=== PATIENT | female | born 1990 | race Caucasian/White ===

== ENCOUNTER 2016-04-18 07:35 | Emergency (ER) | payer OTHER ==
[~2016-04-18] VITALS: Ht 165.1 cm; Wt 81.6 kg
[~2016-04-18 07:35] MED LIST: FLEXERIL10 MG PO; IBU800 MG PO; MELOXICAM7.5 M1 PO; MOBIC15 MG PO; MOTRIN800 MG PO; OXYCODONE-ACET1 EAC1 PO; PERCOCET 325 MG1 TA2 PO; VIBRAMYCIN 100100 MG PO; ZITHROMAX Z-PA250 M1 PO
[2016-04-18] MEDS ORDERED: PERCOCET 7.5-31 EACH PO (07:55)
[2016-04-18 08:28] VITALS: BP 100/75
[2016-04-18] MEDS ORDERED: ZOFRAN ODT4 M1 SL (08:37)
[2016-04-18] MEDS ORDERED: LEVSIN-SL0.125 MG SL (08:37)
--- NOTE | 2016-04-18 08:38 | ED GI/GU/ABDOMINAL COMPLAINT ---
History of Present Illness General Chief Complaint: General Adult Stated Complaint: VOMITING Source: patient, old records Exam Limitations: no limitations Vital Signs & Intake/Output Vital Signs & Intake/Output Vital Signs Date Time Temp Pulse Resp B/P Pulse O2 O2 Flow FiO2 Ox Delivery Rate 04/18 0828 97.0 78 20 100/75 96 Room Air 04/18 0737 97.2 76 18 114/72 98 Room Air Allergies Coded Allergies: Penicillins (RASH 11/11/15) codeine (RASH 11/11/15) Reconcile Medications Hyoscyamine Sulfate (Levsin-Sl) 0.125 MG TAB.SUBL 1-2 TAB SL Q4P PRN abdominal cramps Ondansetron (Zofran Odt) 4 MG TAB.RAPDIS 1 TAB SL TID PRN nausea/vomiting Oxycodone HCl/Acetaminophen (Percocet 7.5-325 MG Tablet) 7.5 MG-325 MG TABLET 1 TAB PO 4 TIMES/DAY PAIN (Reported) Triage Note: 25 YEAR OLD FEMALE STATES THAT SHE HAS VOMITTED X 4 OVER THE PAST HOUR, LOW ABD CRAMPS THAT STARTED AFTER THE VOMITTING Triage Nurses Notes Reviewed? yes LMP (ages 10-50): date ([id number]) ? n Is pt currently ? No Onset: Just prior to arrival Duration: hour(s):, continues in ED Timing: recent history Quality/Severity: cramping, moderate, vomiting Location: periumbilical Radiation: no radiation Activities at Onset: sleep Prior Abdominal Problems: none Past Sexual History: Unobtainable at this time No Modifying Factors: none Associated Symptoms: abdominal pain, nausea/vomiting HPI: Prior to admission patient awoke with nausea vomiting with crampy periumbilical discomfort improved after vomiting without radiation. She denies fever chills chest pain cough shortness of breath headache dysuria rash bleeding . Past History Travel History Traveled to [place] past 21 day No Medical History Any Pertinent Medical History? 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 No Review of Systems Review of Systems Constitutional: Reports: see HPI, malaise. EENTM: Reports: no symptoms. Respiratory: Reports: no symptoms. Cardiovascular: Reports: no symptoms. GI: Reports: see HPI, abdominal pain, nausea, vomiting. Genitourinary: Reports: no symptoms. Musculoskeletal: Reports: no symptoms. Skin: Reports: no symptoms. Neurological/Psychological: Reports: no symptoms. Hematologic/Endocrine: Reports: no symptoms. Immunologic/Allergic: Reports: no symptoms. All Other Systems: Reviewed and Negative Physical Exam Physical Exam General Appearance: well developed/nourished, alert, awake, anxious, mild distress, obese Head: atraumatic, normal appearance Eyes: Bilateral: normal appearance, PERRL, EOMI, normal inspection. Ears, Nose, Throat, Mouth: hearing grossly normal, moist mucous membrane Neck: normal inspection, supple, full range of motion, normal alignment Respiratory: normal breath sounds, chest non-tender, no respiratory distress, quiet respiration, lungs clear Cardiovascular: regular rate/rhythm, normal peripheral pulses, norml femoral pulses equa Peripheral Pulses: 4+ carotid (R), 4+ carotid (L) Gastrointestinal: normal bowel sounds, soft, non-tender, no organomegaly Back: normal inspection, normal range of motion, no vertebral tenderness Extremities: normal range of motion, no ligament instability Neurologic/Psych: no motor/sensory deficits, awake, alert, oriented x 3, normal gait, normal mood/affect, 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 No Severe Sepsis Present: No Septic Shock Present: No Progress Differential Diagnosis: biliary colic, gastritis, PUD/GERD Plan of Care: Orders Procedure Date/time Status URINE 04/18 0739 Complete Laboratory Tests 04/18/16 0742: Urine Test NEGATIVE Initial ED EKG: none Departure Departure Time of Disposition: 835 Disposition: HOME OR SELF CARE Condition: Stable Clinical Impression Primary Impression: Nausea and vomiting in adult patient Referrals: MARY JEFF MD (PCP/Family) Additional Instructions: Clear liquid diet in small amounts for 12-24 hours until better. Departure Forms: Customer Survey General Discharge Information Prescriptions: Current Visit Scripts Ondansetron (Zofran Odt) 1 TAB SL TID PRN nausea/vomiting #15 TAB Hyoscyamine Sulfate (Levsin-Sl) 1-2 TAB SL Q4P PRN abdominal cramps #30 TAB
== END 2016-04-18 09:08 ==
LOC: ERH 07:35
DX: R11.2 Nausea with vomiting, unspecified (principal)
CPT/HCPCS: 81025; J3101

== ENCOUNTER 2016-04-28 23:09 | Emergency (ER) | payer OTHER ==
[~2016-04-28] VITALS: Ht 165.1 cm; Wt 81.6 kg
[~2016-04-28 23:09] MED LIST changes: +LEVSIN-SL0.125 MG SL; +PERCOCET 7.5-31 EACH PO; +ZOFRAN ODT4 M1 SL
--- NOTE | 2016-04-29 00:26 | ED GI/GU/ABDOMINAL COMPLAINT ---
History of Present Illness General Chief Complaint: Abdominal Pain/Flank Pain Stated Complaint: ABD PAIN Source: patient Exam Limitations: no limitations Vital Signs & Intake/Output Vital Signs & Intake/Output Vital Signs Date Time Temp Pulse Resp B/P Pulse O2 O2 Flow FiO2 Ox Delivery Rate 04/29 0148 97.1 57 18 90/60 97 Room Air 04/28 2337 97.8 76 18 109/75 96 Room Air ED Intake and Output 04/29 0000 04/28 1200 Intake Total Output Total Balance Patient 180 lb Weight Allergies Coded Allergies: Penicillins (RASH 11/11/15) codeine (RASH 11/11/15) Reconcile Medications Hyoscyamine Sulfate (Levsin-Sl) 0.125 MG TAB.SUBL 1-2 TAB SL Q4P PRN abdominal cramps Ondansetron (Zofran Odt) 4 MG TAB.RAPDIS 1 TAB SL TID PRN nausea/vomiting Oxycodone HCl/Acetaminophen (Percocet 7.5-325 MG Tablet) 7.5 MG-325 MG TABLET 1 TAB PO 4 TIMES/DAY PAIN (Reported) Triage Note: PT FROM HOME C/O ABD PAIN. PT STATES LAST NIGHT EPISODES OF N/V/D BEGAN. PT STATES SINCE LAST NIGHT ABOUT 13 EPISIODES OF V/D. PT STATES TONIGHT AROUND 2129 THAT SHARP CONSTANT ABD PAIN BEGAN. PT IN NO DISTRESS IN TRIAGE. Triage Nurses Notes Reviewed? yes ? n Is pt currently ? No HPI: Patient presents for evaluation of left alicia-umbilical abdominal pain that began gradually last night. Patient states it is a stabbing pain that has been intermittent with 2 slightly bloody episodes of diarrhea today. She is currently on pain management and takes oxycodone for spine and ankle pain. Her last dose of oxycodone was between 5 and 6 PM tonight. She also tried 800 mg of ibuprofen, last dose at about 7:00. She has not obtained much relief with either medication. She denies any prior history of these types of abdominal pain. Her last menstrual period was last week and was normal. There has been no associated dysuria vaginal bleeding or vaginal discharge. She denies drug or alcohol use. She states the pain feels better if she applies pressure to her abdomen. Past History Travel History Traveled to [place] past 21 day No Medical History Any Pertinent Medical History? 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 No Review of Systems Review of Systems Constitutional: Reports: no symptoms. EENTM: Reports: no symptoms. Respiratory: Reports: no symptoms. Cardiovascular: Reports: no symptoms. GI: Reports: see HPI. Genitourinary: Reports: no symptoms. Musculoskeletal: Reports: no symptoms. Skin: Reports: no symptoms. Neurological/Psychological: Reports: no symptoms. Hematologic/Endocrine: Reports: no symptoms. Immunologic/Allergic: Reports: no symptoms. All Other Systems: Reviewed and Negative Physical Exam Physical Exam Gastrointestinal: see below Comments: Patient found lying on her stomach using her cell phone. Gen.: Well-nourished, well-developed, no acute respiratory distress. Head: Normocephalic, atraumatic. Eyes: Normal inspection bilaterally Ears: Normal inspection bilaterally Nose: Normal inspection Throat/mouth : Moist mucosa Neck: Supple, full range of motion, no goiter Heart: Regular rate and rhythm, no murmurs rubs or gallops Lungs: Clear to auscultation bilaterally with normal air entry Chest: Nontender Back: Normal range of motion Abdomen: Soft, mild left periumbilical abdominal tenderness without rebound or guarding, nondistended, normal bowel sounds, no palpable masses Extremities: Normal range of motion grossly, equal radial pulses, no cyanosis clubbing or edema Neurologic: Cranial nerves grossly intact, speech is clear Skin: warm and dry Psychiatric: Calm, cooperative, no apparent delusions or hallucinations Core Measures ACS in differential dx? No Severe Sepsis Present: No Septic Shock Present: No Progress Differential Diagnosis: DIVERTICULITIS, RENAL COLIC Plan of Care: Orders Procedure Date/time Status URINALYSIS 04/29 24 Complete LIPASE 04/29 24 Complete HUMAN BETA HCG SCREEN 04/29 24 Complete COMPREHENSIVE METABOLIC PANEL 04/29 24 Complete CBC WITHOUT DIFFERENTIAL 04/29 24 Complete Laboratory Tests 04/29/16 0158: Urinalysis LIGHT H, Urine Color YEL, Urine Clarity HAZY H, Urine pH 6.0, Ur Specific Moffat >= 1.030, Urine Protein 30 H, Urine Ketones TRACE H, Urine Nitrite NEG, Urine Bilirubin NEG@ICTO, Urine Urobilinogen 0.2, Ur Leukocyte Esterase NEG, Ur Microscopic SEDIMENT EXAMINED, Urine RBC 1-3, Urine WBC 3-5 H, Ur Epithelial Cells MOD H, Urine Bacteria FEW H, Urine Mucus MANY H, Urine Hemoglobin SMALL H, Urine Glucose NEG 04/29/16 0039: Anion Gap 10, Estimated GFR > 60, BUN/Creatinine Ratio 20.0, Glucose 98, Calcium 10.7 H, Total Bilirubin 0.8, AST 12 L, ALT 19, Alkaline Phosphatase 76, Total Protein 7.5, Albumin 4.5, Globulin 3.0, Albumin/Globulin Ratio 1.5, Lipase 57, Total Beta HCG NEGATIVE, CBC w Diff NO MAN DIFF REQ, RBC 5.21, MCV 89.9, MCH 31.0, RDW 13.3, MPV 8.6, Gran % 63.6, Lymphocytes % 30.6, Monocytes % 5.4, Eosinophils % 0.1, Basophils % 0.3, Absolute Granulocytes 8.1 H, Absolute Lymphocytes 3.9 H, Absolute Monocytes 0.7 H, Absolute Eosinophils 0, Absolute Basophils 0, PUBS MCHC 34.5 Diagnostic Imaging: Discussed w/RAD: CT Scan. Radiology Impression: PATIENT: KESHA RAMOS PRESENT AGE: 25 PATIENT ACCOUNT NO: [id number] : 88 LOCATION: [facility] ORDERING PHYSICIAN: KENNEY MURILLO MD SERVICE DATE: 04/29/16 EXAM TYPE: CAT - CT ABD & PELVIS W/O IV CONTRAS EXAMINATION: CT ABDOMEN AND PELVIS WITHOUT CONTRAST CLINICAL INFORMATION: Left abdominal pain. COMPARISON: None TECHNIQUE: Multidetector volumetric imaging was performed from the superior aspect of the liver through the pubic symphysis. Sagittal and coronal reformatted images were obtained on the technologist's workstation. DLP: 475 mGy-cm FINDINGS: LUNG BASES : The visualized lung bases are unremarkable. LIVER, GALLBLADDER, AND BILIARY TREE: The liver is normal in size, shape, and attenuation. No focal hepatic lesion or biliary ductal dilatation is present. The gallbladder is unremarkable with no evidence of radiopaque gallstones, gallbladder wall thickening, or obvious pericholecystic inflammatory changes. PANCREAS: Unremarkable. SPLEEN: Unremarkable. ADRENAL GLANDS: Unremarkable. KIDNEYS AND URETERS: The kidneys are normal in size, shape, and attenuation. No hydronephrosis, hydroureter, or calculi seen. No perinephric stranding. BLADDER: Unremarkable. GASTROINTESTINAL TRACT: The stomach and small bowel are unremarkable. No dilated loops of bowel or evidence of obstruction. Normal appendix. Significant portion of the left hemicolon is decompressed which limits evaluation for wall thickening. There is no gross evidence for wall thickening. No pericolonic inflammatory change. ABDOMINAL WALL: No significant hernia is appreciated. LYMPH NODES: Normal. VASCULAR: Unremarkable. PELVIC VISCERA: The uterus and adnexa are unremarkable. OSSEOUS STRUCTURES: Unremarkable. IMPRESSION: No acute findings of the abdomen or pelvis. No hydronephrosis or nephrolithiasis. No acute inflammatory changes of the bowel. DICTATED BY: SHILO LOPEZ MD DATE/TIME DICTATED:04/29/16110 GEOPOLITICS TEACHER:JULIETA DATE/TIME TRANSCRIBED:04/29/16110 CONFIDENTIAL, DO NOT COPY WITHOUT APPROPRIATE AUTHORIZATION. <Electronically signed in Other Vendor System> SIGNED BY: SHILO LOPEZ MD 04/29/167 Initial ED EKG: none Comments: 04/29/2016 2:00:49 AM I have updated Kesha on her test results. She is attempting to give a urine sample. Departure Departure Disposition: HOME OR SELF CARE Condition: Stable Clinical Impression Primary Impression: Nonspecific abdominal pain Referrals: MARY JEFF MD (PCP/Family) Additional Instructions: Levsin and voltaren as needed for abdominal pain. Follow-up with your primary care doctor within the next 24-48 hours for reevaluation and further testing. In is unclear at this point, please Return if any concerns or sudden worsening. Please note that there might be incidental findings in your evaluation that are unrelated to the current emergency department visit. Please notify your primary care doctor about this emergency department visit in order to obtain and review all of the testing performed so that these incidental findings can be monitored as needed. If you had an x-ray performed, please understand that some fractures may not be seen on the initial set of x-rays. If your symptoms persist you might need a repeat set of x-rays to check for such a fracture. If you had a laceration evaluated, please understand that foreign bodies such as glass or wood may not be visible to the naked eye or on plain x-rays. If the wound becomes red, swollen, increasingly more painful or if there is any drainage from the wound, please have it reevaluated by a physician for the possibility of a retained foreign body. Thank you for choosing the [facility] Emergency Department for your care. It was a pleasure to serve you today. Kenney Murillo M.D. [facility] Departure Forms: Customer Survey General Discharge Information Prescriptions: Current Visit Scripts Hyoscyamine (Levsin) 1-2 TAB PO Q6P PRN ABDOMINAL CRAMPS #20 TAB Diclofenac Sodium 1 TAB PO BID PRN PAIN #14 TAB
[2016-04-29 00:49] LABS: ABSOLUTE BASOPHIL COUNT 0 /CUMM (0.0-0.2); ABSOLUTE EOSINOPHIL COUNT 0 /CUMM (0.0-0.7); ABSOLUTE GRANULOCYTE CT 8.1 /CUMM (1.4-6.5); ABSOLUTE LYMPH COUNT 3.9 /CUMM (1.2-3.4); ABSOLUTE MONOCYTE COUNT 0.7 /CUMM (0.10-0.60); BASOPHIL % 0.3 % (0.0-2.0); EOSINOPHIL % 0.1 % (0-5); GRANULOCYTE % 63.6 % (42.2-75.2); HEMATOCRIT 46.8 % (37-47); MEAN CORPUSCULAR HGB CONC 34.5 G/DL (33.0-37.0); MEAN CORPUSCULAR VOLUME 89.9 FL (81.0-99.0); MEAN PLATELET VOLUME 8.6 FL (7.4-10.4); PLATELET COUNT 384 /CUMM (130-400); RBC DISTRIBUTION WIDTH 13.3 % (11.5-14.5); RED BLOOD CELL CT 5.21 /CUMM (4.20-5.40); WHITE BLOOD CELL COUNT 12.8 /CUMM (4.8-10.8)
--- NOTE | 2016-04-29 01:17 | CT SCAN REPORT ---
EXAMINATION: CT ABDOMEN AND PELVIS WITHOUT CONTRAST CLINICAL INFORMATION: Left abdominal pain. COMPARISON: None TECHNIQUE: Multidetector volumetric imaging was performed from the superior aspect of the liver through the pubic symphysis. Sagittal and coronal reformatted images were obtained on the technologist's workstation. DLP: 475 mGy-cm FINDINGS: LUNG BASES: The visualized lung bases are unremarkable. LIVER, GALLBLADDER, AND BILIARY TREE: The liver is normal in size, shape, and attenuation. No focal hepatic lesion or biliary ductal dilatation is present. The gallbladder is unremarkable with no evidence of radiopaque gallstones, gallbladder wall thickening, or obvious pericholecystic inflammatory changes. PANCREAS: Unremarkable. SPLEEN: Unremarkable. ADRENAL GLANDS: Unremarkable. KIDNEYS AND URETERS: The kidneys are normal in size, shape, and attenuation. No hydronephrosis, hydroureter, or calculi seen. No perinephric stranding. BLADDER: Unremarkable. GASTROINTESTINAL TRACT: The stomach and small bowel are unremarkable. No dilated loops of bowel or evidence of obstruction. Normal appendix. Significant portion of the left hemicolon is decompressed which limits evaluation for wall thickening. There is no gross evidence for wall thickening. No pericolonic inflammatory change. ABDOMINAL WALL: No significant hernia is appreciated. LYMPH NODES: Normal. VASCULAR: Unremarkable. PELVIC VISCERA: The uterus and adnexa are unremarkable. OSSEOUS STRUCTURES: Unremarkable. IMPRESSION: No acute findings of the abdomen or pelvis. No hydronephrosis or nephrolithiasis. No acute inflammatory changes of the bowel.
[2016-04-29] MEDS ORDERED: DICLOFENAC SODI75 M2 PO (02:24)
[2016-04-29] MEDS ORDERED: LEVSIN0.125 M1 PO (02:24)
[2016-04-29 03:46] VITALS: BP 100/52
== END 2016-04-29 03:47 ==
LOC: ERH 23:09
PROVIDERS: Emergency Medicine
DX: R10.33 Periumbilical pain (principal)
CPT/HCPCS: 74176; 81001

== ENCOUNTER 2016-06-03 20:06 | Emergency (ER) | payer OTHER ==
[~2016-06-03] VITALS: Ht 165.1 cm; Wt 81.6 kg
[~2016-06-03 20:06] MED LIST changes: +DICLOFENAC SODI75 M2 PO; +LEVSIN0.125 M1 PO
[2016-06-03 20:19] VITALS: BP 120/82
[2016-06-03] MEDS ORDERED: MEDROL4 M2 PO (22:08)
[2016-06-03] MEDS ORDERED: ZITHROMAX500 M2 PO (22:08)
--- NOTE | 2016-06-03 22:10 | ED THROAT/DENTAL COMPLAINT ---
History of Present Illness General Chief Complaint: Sore Throat, Dental Pain Stated Complaint: SORE THROAT Source: patient Exam Limitations: no limitations Vital Signs & Intake/Output Vital Signs & Intake/Output Vital Signs Date Time Temp Pulse Resp B/P B/P Pulse O2 O2 Flow FiO2 Mean Ox Delivery Rate 06/03 2156 99.5 06/04 2155 Room Air 06/03 2018 99.3 99 18 120/82 97 Room Air Allergies Coded Allergies: Penicillins (RASH 11/11/15) codeine (RASH 11/11/15) Reconcile Medications Azithromycin (Zithromax) 500 MG TABLET 1 TAB PO DAILY PHARYNGITIS Diclofenac Sodium 75 MG TABLET.DR 1 TAB PO BID PRN PAIN Hyoscyamine (Levsin) 0.125 MG TABLET 1-2 TAB PO Q6P PRN ABDOMINAL CRAMPS Methylprednisolone. (Medrol) 4 MG TAB.DS.PK 1 DP PO AD INFLAMMATION 6 on day 1 then reduce by one tablet daily until gone Oxycodone HCl/Acetaminophen (Percocet 7.5-325 MG Tablet) 7.5 MG-325 MG TABLET 1 TAB PO 4 TIMES/DAY PAIN (Reported) Triage Note: PT TO TRIAGE WITH C/O SORE THROAT 10/10 AND CHILLS SINCE THIS MORNING. PT AFEBRILE IN TRIAGE. VSS. STREP SWAB OBTAINED IN TRIAGE AND SENT TO LAB. Triage Nurses Notes Reviewed? yes Onset: Abrupt Duration: constant Timing: single episode today Injury Environment: home Severity: severe Severity Numbers: 7 No Modifying Factors: none : No Patient currently breastfeeds: No HPI: Patient is a 25-year-old female who presents emergency room with a one-day history of sore throat and fevers cough and lymph node enlargement. Denies any similar sick contacts. States that eating and drinking makes worse. (CARLTON LOZOYA) Past History Travel History Traveled to [place] past 21 day No Medical History Any Pertinent Medical History? 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 No (CARLTON LOZOYA) Review of Systems Review of Systems Constitutional: Reports: see HPI. EENTM: Reports: see HPI, throat pain, throat swelling. Respiratory: Reports: see HPI, cough. Cardiovascular: Reports: no symptoms. GI: Reports: no symptoms. Genitourinary: Reports: no symptoms. Musculoskeletal: Reports: no symptoms. Skin: Reports: no symptoms. Neurological/Psychological: Reports: no symptoms. Hematologic/Endocrine: Reports: no symptoms. Immunologic/Allergic: Reports: see HPI, lymphadenopathy. All Other Systems: Reviewed and Negative (CARLTON LOZOYA) Physical Exam Physical Exam General Appearance: no apparent distress, comfortable Mouth/Throat: normal mouth inspection, BILATERAL SCATTERED EXUDATES NOTED TO PHARYNGEAL REGION Comments: Well-developed well-nourished person in no acute distress HEENT: extraocular motion intact, no nystagmus. Pupils equally round and reactive to light and accommodation. Nose is atraumatic. External auditory canal and Tympanic membranes clear. Neck: Supple, anterior cervical BIlateral Lymphadenopathy, normal range of motion without pain or tenderness Back: Nontender, no CVA tenderness. Cardiovascular: Regular rate and rhythms no murmurs rubs or gallops, normal JVP Respiratory: Chest nontender. No respiratory distress.breath sounds clear to auscultation bilaterally Abdomen: Soft, nontender nondistended, no appreciable organomegaly. Normal bowel sounds. No ascites Extremity: No edema, no calf tenderness to palpation, normal and equal pulses. Neuro: Alert oriented x3, motor sensory normal, Skin: No appreciable rash on exposed skin, skin is warm and dry. Psych: Mood and affect is normal, memory and judgment is normal. Core Measures ACS in differential dx? No Severe Sepsis Present: No Septic Shock Present: No (CARLTON LOZOYA) Progress Differential Diagnosis: carious tooth, epiglottitis, Ludwigs angina, meningitis, odontogenic abscess, alicia-tonsillar abscess, pharyngeal for. body, stomatitis/ gingivitis, strep pharyngitis, tooth fracture Plan of Care: Orders Procedure Date/time Status THROAT CULTURE W/QUICK STREP 06/04 2023 Active No signs of peritonsillar abscess no signs of trismus no signs of Maximiliano's angina. Patient will be treated for concerns of strep pharyngitis culture is pending (CARLTON LOZOYA) Departure Departure Disposition: HOME OR SELF CARE Condition: Stable Clinical Impression Primary Impression: Pharyngitis Referrals: TOMER HELM,MARY (PCP/Family) Additional Instructions: As discussed begin the prescription of azithromycin as directed for the full course. Begin the prescription of Medrol Dosepak for inflammation and the prescription match mouthwash for your symptoms. If no better in 2 days follow- up with her primary care doctor. If symptoms worsen return to emergency room Departure Forms: Customer Survey General Discharge Information Prescriptions: Current Visit Scripts Azithromycin (Zithromax) 1 TAB PO DAILY #5 TAB Methylprednisolone. (Medrol) 1 DP PO AD #1 DP 6 on day 1 then reduce by one tablet daily until gone (CARLTON LOZOYA) PA/LADLE LINER HELPER Co-Sign Statement Statement: ED Attending supervision documentation- [] I saw and evaluated the patient. I have also reviewed all the pertinent lab results and diagnostic results. I agree with the findings and the plan of care as documented in the PA's/LADLE LINER HELPER's documentation. [X] I have reviewed the ED Record and agree with the PA's/LADLE LINER HELPER's documentation. [] Additions or exceptions (if any) to the PAs/LADLE LINER HELPER's note and plan are summarized below: [] (YULI HELM,LILLIAN)
== END 2016-06-03 22:14 ==
LOC: ERH 20:06
DX: J02.9 Acute pharyngitis, unspecified (principal); Z72.0 Tobacco use

== ENCOUNTER 2016-07-19 15:38 | Emergency (ER) | payer OTHER ==
[~2016-07-19] VITALS: Ht 165.1 cm; Wt 81.6 kg
[~2016-07-19 15:38] MED LIST changes: +MEDROL4 M2 PO; +ZITHROMAX500 M2 PO
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
[2016-07-19] MEDS ORDERED: PROAIR HFA8.5 GM INH (16:40)
[2016-07-19] MEDS ORDERED: ZITHROMAX250 M2 PO (16:40)
[2016-07-19] MEDS ORDERED: DIFLUCAN150 M1 PO (16:40)
[2016-07-19] MEDS ORDERED: CYCLOBENZAPRINE5 M2 PO (16:40)
[2016-07-19 16:48] VITALS: BP 102/74
--- NOTE | 2016-07-19 16:50 | RADIOLOGY REPORT ---
EXAMINATION: XR CHEST CLINICAL INFORMATION: Cough and dyspnea COMPARISON: None TECHNIQUE: 2 views of the chest were obtained. FINDINGS: No significant abnormality is noted involving the heart, lungs, mediastinum, bony thorax or soft tissues. Incidental right cervical rib is identified. IMPRESSION: Normal examination.
== END 2016-07-19 16:50 ==
LOC: ERH 15:38
DX: S20.219A Contusion of unspecified front wall of thorax, initial encounter (principal); J40 Bronchitis, not specified as acute or chronic; Z72.0 Tobacco use; V49.40XA Driver injured in collision with unspecified motor vehicles in traffic accident, initial encounter; Y92.9 Unspecified place or not applicable
CPT/HCPCS: 1263

== ENCOUNTER 2016-08-13 08:04 | Emergency (ER) | payer OTHER ==
[~2016-08-13] VITALS: Ht 165.1 cm; Wt 77.1 kg
[~2016-08-13 08:04] MED LIST changes: +CYCLOBENZAPRINE5 M2 PO; +DIFLUCAN150 M1 PO; +PROAIR HFA8.5 GM INH; +ZITHROMAX250 M2 PO
--- NOTE | 2016-08-13 08:34 | ED GI/GU/ABDOMINAL COMPLAINT ---
History of Present Illness General Chief Complaint: Nausea, Vomiting, Diarrhea Stated Complaint: +NVD Source: patient, old records Exam Limitations: no limitations Vital Signs & Intake/Output Vital Signs & Intake/Output Vital Signs Date Time Temp Pulse Resp B/P B/P Pulse O2 O2 Flow FiO2 Mean Ox Delivery Rate 08/13 1043 97.7 72 109/71 98 Room Air 08/13 0806 97.7 92 20 113/55 97 Room Air Allergies Coded Allergies: Penicillins (RASH 07/19/16) codeine (RASH 07/19/16) Reconcile Medications Metoclopramide HCl (Reglan) 10 MG TABLET 1 TAB PO 4 TIMES/DAY PRN nausea/ vomiting 30 minutes before meals and bedtime Oxycodone HCl/Acetaminophen (Percocet 7.5-325 MG Tablet) 7.5 MG-325 MG TABLET 1 TAB PO 4 TIMES/DAY PAIN (Reported) Triage Note: PT STATES HAVING ABD PAIN WITH N/V/D X 3 DAYS. UNABLE TO KEEP ANYTHING DOWN. Triage Nurses Notes Reviewed? yes ? N Is pt currently ? No Onset: Abrupt Duration: day(s): Timing: recent history Location: epigastric, left upper quadrant Radiation: no radiation Modifying Factors: Worsens With: eating. HPI: 25-year-old female presents emergency department complaining of N/V/D X 3 days. Patient states that she has not been able to eat anything without experiencing nausea and vomiting. She states she has non-bloody vomiting greater than 10 times per day. She also experiences diarrhea 6 per day, she has noticed streaking of blood in her diarrhea without pain. She does have a chronic cough, sometimes productive of sputum, however she notes that it is improved since her last visit here for bronchitis. She is a current smoker. She states she has been feeling warm at home however did not record any fevers. She denies recent illness, sore throat, dizziness, urinary symptoms, chest pain, dyspnea. She denies any sick contacts with similar symptoms. She denies any changes in her diet or recently trying new foods. (KESHA GOMEZ PA-C) Past History Travel History Traveled to [place] past 21 day No Medical History Any Pertinent Medical History? 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 No (KESHA GOMEZ PA-C) Review of Systems Review of Systems Constitutional: Reports: see HPI. EENTM: Reports: no symptoms. Respiratory: Reports: no symptoms. Cardiovascular: Reports: no symptoms. GI: Reports: see HPI. Genitourinary: Reports: no symptoms. Musculoskeletal: Reports: no symptoms. Skin: Reports: no symptoms. Neurological/Psychological: Reports: no symptoms. Hematologic/Endocrine: Reports: no symptoms. Immunologic/Allergic: Reports: no symptoms. All Other Systems: Reviewed and Negative (KESHA GOMEZ PA-C) Physical Exam Physical Exam General Appearance: well developed/nourished, no apparent distress, alert, awake Head: atraumatic, normal appearance Eyes: Bilateral: normal appearance. Ears, Nose, Throat, Mouth: hearing grossly normal Neck: normal inspection, supple, full range of motion Respiratory: normal breath sounds, no respiratory distress, lungs clear Cardiovascular: regular rate/rhythm Gastrointestinal: normal bowel sounds, soft, no organomegaly, epigastric and LUQ tenderness, no rebound or gaurding Back: normal inspection, normal range of motion Extremities: normal range of motion Neurologic/Psych: awake, alert, oriented x 3 Skin: intact, normal color, warm/dry Core Measures ACS in differential dx? No Severe Sepsis Present: No Septic Shock Present: No (KESHA GOMEZ PA-C) Progress Differential Diagnosis: appendicitis, biliary colic, bowel obstruction, cholecystitis, diverticulitis, gastritis, hepatitis, intrauterine , pancreatitis, peptic ulcer, PUD/GERD Plan of Care: Orders Procedure Date/time Status HUMAN BETA HCG SCREEN 08/13 08 Complete LIPASE 08/13 08 Complete COMPREHENSIVE METABOLIC PANEL 08/13 826 Complete CBC WITHOUT DIFFERENTIAL 08/13 826 Complete AMYLASE 08/13 826 Complete Laboratory Tests 08/13/16 0843: Anion Gap 11, Estimated GFR > 60, BUN/Creatinine Ratio 24.3, Glucose 85, Calcium 9.1, Total Bilirubin 2.1 H, AST 13 L, ALT 22, Alkaline Phosphatase 69, Total Protein 7.0, Albumin 4.5, Globulin 2.5, Albumin/Globulin Ratio 1.8, Amylase 44, Lipase 41, Total Beta HCG NEGATIVE, CBC w Diff NO MAN DIFF REQ, RBC 4.71, MCV 89.8, MCH 30.5, RDW 12.9, MPV 8.4, Gran % 72.7, Lymphocytes % 21.9, Monocytes % 4.8, Eosinophils % 0.1, Basophils % 0.5, Absolute Granulocytes 6.8 H, Absolute Lymphocytes 2.0, Absolute Monocytes 0.4, Absolute Eosinophils 0, Absolute Basophils 0, PUBS MCHC 34.0 08/13/16 0840: Total Beta HCG Cancelled 08/13/16 0829: Urine Test Cancelled 10:30 - patient feels reduced nausea following the Reglan. She is requesting IV pain medication. The patient was discussed with Dr. Zuniga. Given increased total bilirubin will obtain a gallbladder ultrasound to assess for cholecystitis. 11:21 - results of ultrasound showed no acute cholecystitis or cholelithiasis. Likely viral gastroenteritis, duration has been to 3 days. Patient was given a prescription for Reglan as this improved her nausea here in the ED. Patient was told to follow-up with her primary care doctor for continued symptoms and to call and make an appointment for this week. The patient was educated on the BRAT diet and fluid and electrolyte replacement with Pedialyte and clear liquids. The patient is in no acute distress, she is nontoxic appearing, her vital signs are stable. The patient is in agreement with the plan of care. (KESHA GOMEZ PA-C) Initial ED EKG: none (KESHA GOMEZ PA-C) Departure Departure Disposition: HOME OR SELF CARE Condition: Stable Clinical Impression Primary Impression: Nausea vomiting and diarrhea Referrals: MARY JEFF MD (PCP/Family) Additional Instructions: Take Reglan as needed for your nausea and vomiting. Drink clear fluids and Pedialyte as tolerated for hydration. Initiate BRAT diet as discussed as tolerated. Return with worsening symptoms or concerns, blood in vomit, worsening abdominal pain, fevers. Call your primary care physician to inform them that he was seen and evaluated today and inform them of the results of your tests. Follow-up with your primary care doctor this week. Departure Forms: Customer Survey General Discharge Information Prescriptions: Current Visit Scripts Metoclopramide HCl (Reglan) 1 TAB PO 4 TIMES/DAY PRN nausea/vomiting #12 TAB 30 minutes before meals and bedtime (KESHA GOMEZ PA-C) PA/ASSISTANT FILM EDITOR Co-Sign Statement Statement: ED Attending supervision documentation- [] I saw and evaluated the patient. I have also reviewed all the pertinent lab results and diagnostic results. I agree with the findings and the plan of care as documented in the PA's/ASSISTANT FILM EDITOR's documentation. [X] I have reviewed the ED Record and agree with the PA's/ASSISTANT FILM EDITOR's documentation. [] Additions or exceptions (if any) to the PAs/ASSISTANT FILM EDITOR's note and plan are summarized below: [] (LAURO HELM,WOODY Flynn)
[2016-08-13 08:55] LABS: ABSOLUTE BASOPHIL COUNT 0 /CUMM (0.0-0.2); ABSOLUTE EOSINOPHIL COUNT 0 /CUMM (0.0-0.7); ABSOLUTE GRANULOCYTE CT 6.8 /CUMM (1.4-6.5); ABSOLUTE MONOCYTE COUNT 0.4 /CUMM (0.10-0.60); BASOPHIL % 0.5 % (0.0-2.0); EOSINOPHIL % 0.1 % (0-5); GRANULOCYTE % 72.7 % (42.2-75.2); HEMATOCRIT 42.3 % (37-47); MEAN CORPUSCULAR HGB 30.5 PG (27.0-31.0); MEAN CORPUSCULAR VOLUME 89.8 FL (81.0-99.0); MEAN PLATELET VOLUME 8.4 FL (7.4-10.4); PLATELET COUNT 342 /CUMM (130-400); RBC DISTRIBUTION WIDTH 12.9 % (11.5-14.5); RED BLOOD CELL CT 4.71 /CUMM (4.20-5.40); WHITE BLOOD CELL COUNT 9.3 /CUMM (4.8-10.8)
[2016-08-13 10:43] VITALS: BP 109/71
--- NOTE | 2016-08-13 11:03 | ULTRASOUND REPORT ---
EXAMINATION: US ABDOMEN LIMITED CLINICAL INFORMATION: Epigastric pain. COMPARISON: CT abdomen pelvis 04/29/2016 TECHNIQUE: Real-time imaging of the right upper quadrant abdominal viscera. FINDINGS: PANCREAS: Unremarkable. LIVER: Unremarkable. The liver demonstrates normal size, contour and echogenicity. No focal lesion or intrahepatic biliary duct dilatation. GALLBLADDER: Normal. The gallbladder is physiologically distended without evidence of stones, sludge, polyps, wall thickening or pericholecystic fluid. COMMON BILE DUCT: Normal in caliber measuring 0.3 cm in diameter. RIGHT KIDNEY: Normal. No hydronephrosis. No renal calculi or focal parenchymal lesions. The kidney measures 10.9 cm in maximum dimension. FREE FLUID: None. IMPRESSION: Unremarkable examination. No evidence of cholelithiasis or acute cholecystitis.
[2016-08-13] MEDS ORDERED: REGLAN10 M1 PO (11:16)
== END 2016-08-13 11:26 ==
LOC: ERH 08:04
PROVIDERS: Physician Assistant
DX: R11.2 Nausea with vomiting, unspecified (principal); R19.7 Diarrhea, unspecified
CPT/HCPCS: 81025; 96361; 96374; 96375; J2405; J2765